=== PATIENT | male | born 1940 | race Caucasian/White ===

== ENCOUNTER → 2017-04-29 | Outpatient (CLI) | payer MEDICARE ==
[2015-09-29 15:06] VITALS: BP 121/62
[~2017-04-29] MED LIST: ASPI-482 PO; LOSA50TA6 PO; LOVA20TA2 PO
--- NOTE | 2017-04-29 09:57 | CARD ---
APPROVED REPORT EXAM: Two-dimensional and M-mode echocardiogram with Doppler and color Doppler. Other Information Quality : GoodHR: 52bpm Rhythm : Bradycardia INDICATION Aortic insufficiency RISK FACTORS Hypertension Hyperlipidemia Family History Previous smoker 2D DIMENSIONS RVDd3.3 (2.9-3.5cm)Left Atrium(2D)3.4 (1.6-4.0cm) IVSd0.9 (0.7-1.1cm)Aortic Root(2D)2.8 (2.0-3.7cm) LVDd4.7 (3.9-5.9cm)LVOT Diameter2.3 (1.8-2.4cm) PWd0.9 (0.7-1.1cm)LVDs3.1 (2.5-4.0cm) FS (%) 34.7 %SV65.9 ml LVEF(%)63.8 (>50%) Aortic Valve AoV Peak Diaz.147.9cm/sAoV VTI31.3cm AO Peak GR.8.8mmHgLVOT Peak Diaz.108.6cm/s AO Mean GR.4mmHgAVA (VMAX)3.14cm2 AI P 1/2 Dkhn677pr Mitral Valve MV E Vdekzrvl50.6cm/sMV E Peak Gr.2mmHg MV DECEL [id number] A Fmxiovwf88.2cm/s MV E Mean Gr.1mmHgE/A Ratio0.8 MV A Prihdxyd396bh Pulmonary Valve PV Peak Uprfixst461.9cm/s Pulmonary Vein S1 Klzuvypg94.7cm/sD2 Dclrguzp81.6cm/s PVa vhorvyzj06mmrb LEFT VENTRICLE The left ventricle is normal size. There is normal left ventricular wall thickness. The left ventricu lar systolic function is normal and the ejection fraction is within normal range. The Ejection Fracti on is 60-65%. There is normal LV segmental wall motion. Transmitral Doppler flow pattern is Grade I-a bnormal relaxation pattern. RIGHT VENTRICLE The right ventricle is normal size. There is normal right ventricular wall thickness. The right ventr icular systolic function is normal. ATRIA The left atrium size is normal. The right atrium size is normal. The interatrial septum is intact wit h no evidence for an atrial septal defect or patent foramen ovale as noted on 2-D or Doppler imaging. AORTIC VALVE The aortic valve is mildly sclerotic. The aortic valve is trileaflet. Doppler and Color Flow revealed mild aortic regurgitation. There is no significant aortic valvular stenosis. MITRAL VALVE Mitral annular calcification is mild. The mitral valve leaflets are thickened. There is no evidence o f mitral valve prolapse. There is no mitral valve stenosis. Doppler and Color Flow revealed trace janey ral regurgitation. TRICUSPID VALVE Doppler and Color Flow revealed no tricuspid valve regurgitation, unable to determine pulmonary arter y pressure at exam time. PULMONIC VALVE The pulmonic valve is not well visualized but appears to open adequately. Doppler and Color Flow reve aled mild pulmonic valvular regurgitation. There is no pulmonic valvular stenosis by spectral Doppler . GREAT VESSELS The aortic root is normal in size. The ascending aorta is normal in size. The IVC is normal in size a nd collapses >50% with inspiration. PERICARDIAL EFFUSION There is no evidence of significant pericardial effusion. Critical Notification Critical Value: No <Conclusion> The left ventricular systolic function is normal and the ejection fraction is within normal range. Th e Ejection Fraction is 60-65%. There is normal LV segmental wall motion. Doppler and Color Flow revealed mild aortic regurgitation.
== END | disposition home or self-care (01) ==
LOC: ECHO 08:56
PROVIDERS: ATTEND Internal Medicine Cardiovascular Disease
DX: I35.1 Nonrheumatic aortic (valve) insufficiency (principal)
CPT/HCPCS: 93306

== ENCOUNTER → 2018-06-02 | Outpatient (CLI) | payer MEDICARE ==
[2015-09-29 15:06] VITALS: BP 121/62
[~2018-06-02] MED LIST changes: -LOSA50TA6 PO; +LOSA50TA7 PO
--- NOTE | 2018-06-02 10:24 | CARD ---
MR#: [id number] Date of Study: 06/02/2018 Ordering Physician: GABRIELLE QUINTANA, Referring Physician: GABRIELLE QUINTANA Tech: Vianey Palma RDCS APPROVED REPORT EXAM: Two-dimensional and M-mode echocardiogram with Doppler and color Doppler. Other Information Quality : Good INDICATION Aortic Insufficiency 2D DIMENSIONS Left Atrium(2D)2.4 (1.6-4.0cm)IVSd0.8 (0.7-1.1cm) Aortic Root(2D)2.3 (2.0-3.7cm)LVDd5.2 (3.9-5.9cm) PWd0.9 (0.7-1.1cm)LVDs2.8 (2.5-4.0cm) FS (%) 30.0 %SV99.8 ml LVEF(%)60.0 (>50%) Aortic Valve AoV Peak Diaz.129.6cm/sAoV VTI24.8cm AO Peak GR.6.7mmHgLVOT Peak Diaz.114.6cm/s LVOT VTI 24.18cmAO Mean GR.3mmHg AI P 1/2 Ryrm491os Mitral Valve MV E Scxzdjrv20.6cm/sMV DECEL ZNXY792pz MV A Wcnqdwnd16.1cm/sMV GQQ20id E/A Ratio0.7MVA (PHT)2.71cm2 TDI E/Lateral E'7.7E/Medial E'7.5 Pulmonary Vein S1 Qwfzgqus68.6cm/sD2 Ckgjvdtb55.7cm/s LEFT VENTRICLE The left ventricle is normal size. There is normal left ventricular wall thickness. The left ventricu lar systolic function is normal. The Ejection Fraction is 60-65%. There is normal LV segmental wall m otion. Transmitral Doppler flow pattern is Grade I-abnormal relaxation pattern. RIGHT VENTRICLE The right ventricle is normal size. The right ventricular systolic function is normal. ATRIA The left atrium size is normal. The right atrium size is normal. The interatrial septum is intact wit h no evidence for an atrial septal defect or patent foramen ovale as noted on 2-D or Doppler imaging. AORTIC VALVE The aortic valve is calcified but opens well. Doppler and Color Flow revealed mild to moderate aortic regurgitation. There is no significant aortic valvular stenosis. MITRAL VALVE The mitral valve is calcified but opens well. There is no evidence of mitral valve prolapse. There is no mitral valve stenosis. Doppler and Color-flow revealed mild mitral regurgitation. TRICUSPID VALVE The tricuspid valve is normal in structure and function. Doppler and Color Flow revealed no tricuspid valve regurgitation noted. There is no tricuspid valve stenosis. PULMONIC VALVE The pulmonic valve is not well visualized. Doppler and Color Flow revealed no pulmonic valvular regur gitation. There is no pulmonic valvular stenosis. GREAT VESSELS The aortic root is normal in size. The ascending aorta is not well seen. The IVC is normal in size an d collapses >50% with inspiration. PERICARDIAL EFFUSION There is no evidence of significant pericardial effusion. Critical Notification Critical Value: No <Conclusion> The left ventricular systolic function is normal. The Ejection Fraction is 60-65%. There is normal LV segmental wall motion. Transmitral Doppler flow pattern is Grade I-abnormal relaxation pattern. Mild to moderate aortic regurgitation. Mild mitral regurgitation. There is no evidence of significant pericardial effusion. Signed by : Gabrielle Quintana, Electronically Approved : 06/02/2018 10:24:10
== END | disposition home or self-care (01) ==
LOC: ECHO 09:03
PROVIDERS: ATTEND Internal Medicine Cardiovascular Disease
DX: I08.0 Rheumatic disorders of both mitral and aortic valves (principal)
CPT/HCPCS: 93306

== ENCOUNTER → 2018-07-11 | Outpatient (CLI) | payer MEDICARE ==
[2015-09-29 15:06] VITALS: BP 121/62
--- NOTE | 2018-07-11 14:26 | KCIC ---
MR of the left shoulder Indication: Left shoulder pain, pain for one year, decreased range of motion.. Comparison: None are available. Technique: Standard multiplanar sequences are obtained. Findings: Artifact: No significant image degradation. Acromioclavicular joint: Mildly degenerative. Rotator cuff: * Supraspinatus-infraspinatus tendon: Tendinosis. There is a small undersurface tear which indicates with an intraosseous cyst at the anterior greater tuberosity. No full-thickness tear or retracted tear. * Subscapularis tendon: Tendinosis, mild partial interstitial tearing. * Muscle bulk: Very mild volume loss. * Subacromial subdeltoid bursa: No significant effusion. Fluid: No significant glenohumeral effusion. Glenohumeral cartilage: Severe chondromalacia. Mild marginal osteophytes. Labrum: Signal within the superior labrum compatible with a small tear, also extends into the posterior labrum. Biceps tendon: Intact Bones: No lesion or acute fracture. Soft tissue: No acute findings.. Impression: 1. Rotator cuff tendinosis. Small subcentimeter undersurface tear of the anterior supraspinatus tendon. Mild partial subscapularis tendon tear. 2. Primary osteoarthritis. 3. Posterosuperior labral degenerative tear. Electronically signed by: Wayne Guzman MD (07/11/2018 2:22 PM) [facility]
== END | disposition home or self-care (01) ==
LOC: KCIC MRI 12:12
PROVIDERS: ATTEND Family Medicine
DX: M19.012 Primary osteoarthritis, left shoulder (principal); M94.212 Chondromalacia, left shoulder; M75.102 Unspecified rotator cuff tear or rupture of left shoulder, not specified as traumatic; M25.712 Osteophyte, left shoulder
CPT/HCPCS: 73221

== ENCOUNTER → 2019-06-11 | Outpatient (CLI) | payer MEDICARE ==
[2015-09-29 15:06] VITALS: BP 121/62
[~2019-06-11] MED LIST changes: +LOSA-73 PO; -LOSA50TA7 PO
--- NOTE | 2019-06-11 16:50 | CARD ---
MR#: [id number] Date of Study: 06/11/2019 Ordering Physician: GABRIELLE QUINTANA, Referring Physician: Chapo SIMMONS: Lupe Ladd APPROVED REPORT EXAM: Two-dimensional and M-mode echocardiogram with Doppler and color Doppler. Other Information Quality : AverageHR: 57bpm INDICATION Aortic Valve Insuffiency 2D DIMENSIONS RVDd3.3 (2.9-3.5cm)Left Atrium(2D)3.1 (1.6-4.0cm) IVSd0.8 (0.7-1.1cm)Aortic Root(2D)2.9 (2.0-3.7cm) LVDd4.8 (3.9-5.9cm)LVOT Diameter2.2 (1.8-2.4cm) PWd0.6 (0.7-1.1cm)LVDs3.0 (2.5-4.0cm) FS (%) 37.2 %SV73.1 ml Aortic Valve AoV Peak Diaz.145.9cm/sAoV VTI24.8cm AO Peak GR.8.5mmHgLVOT Peak Diaz.124.7cm/s LVOT VTI 22.75cmAO Mean GR.4mmHg HOME (VMAX)2.90dd5VZN (VTI)3.62cm2 AI P 1/2 Zknk998vv Mitral Valve MV E Icvsxugp13.2cm/sMV DECEL VAHF726tc MV A Xdcexvth88.6cm/sMV TUJ608bf E/A Ratio0.9MVA (PHT)1.98cm2 TDI E/Lateral E'5.9E/Medial E'6.8 Pulmonary Valve PV Peak Frbjvdfe50.6cm/sPV Peak Grad.3mmHg Tricuspid Valve TR P. Ihpzanhu256na/sRAP GGLICKVB16jyYb TR Peak Gr.23mmHg Pulmonary Vein S1 Plqgvsqx67.6cm/sD2 Htnwhzfc00.2cm/s PVa vukzgozb275mwmw LEFT VENTRICLE The left ventricle is normal size. There is normal left ventricular wall thickness. The left ventricu lar systolic function is normal and the ejection fraction is within normal range. The Ejection Fracti on is 55-60%. There is normal LV segmental wall motion. Transmitral Doppler flow pattern is Grade I-a bnormal relaxation pattern. RIGHT VENTRICLE The right ventricle is normal size. There is normal right ventricular wall thickness. The right ventr icular systolic function is normal. ATRIA The left atrium size is normal. The right atrium size is normal. The interatrial septum is intact wit h no evidence for an atrial septal defect or patent foramen ovale as noted on 2-D or Doppler imaging. AORTIC VALVE The aortic valve is calcified but opens well. Doppler and Color Flow revealed mild aortic regurgitati on. There is no significant aortic valvular stenosis. MITRAL VALVE The mitral valve is thickened but opens well. There is no evidence of mitral valve prolapse. There is no mitral valve stenosis. Doppler and Color-flow revealed mild mitral regurgitation. TRICUSPID VALVE The tricuspid valve is normal in structure and function. Doppler and Color Flow revealed trace tricus pid regurgitation with an estimated PAP of 26 mmHg. There is no tricuspid valve stenosis. PULMONIC VALVE The pulmonic valve is not well visualized. Doppler and Color Flow revealed trace pulmonic valvular re gurgitation. GREAT VESSELS The aortic root is normal in size. The IVC is normal in size and collapses >50% with inspiration. PERICARDIAL EFFUSION There is no evidence of significant pericardial effusion. Critical Notification Critical Value: No <Conclusion> The left ventricle is normal size. The left ventricular systolic function is normal and the ejection fraction is within normal range. The Ejection Fraction is 55-60%. There is normal left ventricular wall thickness. There is no significant aortic valvular stenosis. Doppler and Color Flow revealed mild aortic regurgitation. Doppler and Color-flow revealed mild mitral regurgitation. Doppler and Color Flow revealed trace tricuspid regurgitation with an estimated PAP of 26 mmHg. Signed by : Angus Corcoran MD Electronically Approved : 06/11/2019 16:49:51
== END | disposition home or self-care (01) ==
LOC: ECHO 09:57
PROVIDERS: ATTEND Internal Medicine Cardiovascular Disease
DX: I08.0 Rheumatic disorders of both mitral and aortic valves (principal)
CPT/HCPCS: 93306

== ENCOUNTER → 2019-09-06 | Outpatient (CLI) | payer MEDICARE ==
[2015-09-29 15:06] VITALS: BP 121/62
--- NOTE | 2019-09-06 16:27 | KCIC ---
EXAM: Thyroid sonogram. HISTORY: Neck pain and swelling. TECHNIQUE: Sonographic imaging of the thyroid was performed. COMPARISON: None. FINDINGS: The right thyroid lobe measures 4.3 x 1.8 x 1.8 cm. The left thyroid lobe measures 4.7 x 1.6 x 1.6 cm. The isthmus measures 2 mm. There is a 4 mm colloid cyst within the inferior right thyroid lobe. No solid thyroid lesion is seen IMPRESSION: 1. Small right colloid cyst. 2. Normal thyroid size. No suspicious thyroid lesion is seen. Electronically signed by: Jacquelin Wilkinson MD (09/06/2019 4:24 PM) [place] [id number]
== END | disposition home or self-care (01) ==
LOC: KCIC US 12:10
PROVIDERS: ATTEND Family Medicine
DX: E04.1 Nontoxic single thyroid nodule (principal)
CPT/HCPCS: 76536

== ENCOUNTER → 2020-06-11 | Outpatient (CLI) | payer MEDICARE ==
[2015-09-29 15:06] VITALS: BP 121/62
--- NOTE | 2020-06-11 17:46 | CARD ---
MR#: [id number] Date of Study: 06/11/2020 Ordering Physician: GABRIELLE QUINTANA, Referring Physician: GABRIELLE QUINTANA, Tech: Celia Zafar APPROVED REPORT EXAM: Two-dimensional and M-mode echocardiogram with Doppler and color Doppler. Other Information Quality : FairHR: 66bpm Technically limited study due to body habitus. INDICATION Aortic Valve Disease RISK FACTORS Hypertension Hyperlipidemia 2D DIMENSIONS RVDd2.7 (2.9-3.5cm)IVSd0.9 (0.7-1.1cm) Aortic Root(2D)3.2 (2.0-3.7cm)LVDd4.2 (3.9-5.9cm) LVOT Diameter2.0 (1.8-2.4cm)PWd0.9 (0.7-1.1cm) LVDs3.2 (2.5-4.0cm)LVEF(%)50.0 (>50%) Aortic Valve AoV Peak Diaz.134.4cm/sAoV VTI28.7cm AO Peak GR.7.2mmHgLVOT Peak Diaz.121.6cm/s LVOT VTI 24.50cmAO Mean GR.4mmHg Mitral Valve MV E Zrlnwupn040.9cm/sMV A Uaaazphz00.3cm/s E/A Ratio1.3 TDI E/Lateral E'8.6E/Medial E'12.9 Pulmonary Valve PV Peak Odrsdjsm958.9cm/sPV Peak Grad.4mmHg Tricuspid Valve TR P. Bnxzlabz157st/sRAP KFIVOYVW3qcIp TR Peak Gr.41unXkUHMM77mnBt Pulmonary Vein S1 Cdgnorsb45.4cm/sD2 Tgkxhgqq76.5cm/s PVa qnumhcab439uphv LEFT VENTRICLE The left ventricle is normal size. There is normal left ventricular wall thickness. The left ventricu lar systolic function is normal and the ejection fraction is within normal range. The Ejection Fracti on is 50-55%. There is normal LV segmental wall motion. Transmitral Doppler flow pattern is Grade II- pseudonormal filling dynamics. RIGHT VENTRICLE The right ventricle is normal size. There is normal right ventricular wall thickness. The right ventr icular systolic function is normal. ATRIA The left atrium size is normal. The right atrium size is normal. The interatrial septum is intact wit h no evidence for an atrial septal defect or patent foramen ovale as noted on 2-D or Doppler imaging. AORTIC VALVE Grossly normal, not well visualized. Probably trileaflet. Doppler and Color Flow revealed mild aortic regurgitation. There is no significant aortic valvular stenosis. Calculated aortic valve area is 2.5 5 cm2 with maximum pressure gradient of 8 mmHg and mean pressure gradient of 5 mmHg. MITRAL VALVE The mitral valve is normal in structure and function. There is no evidence of mitral valve prolapse. There is no mitral valve stenosis. Doppler and Color-flow revealed trace mitral regurgitation. TRICUSPID VALVE Not well visualized. Doppler and Color Flow revealed trace tricuspid regurgitation with an estimated PAP of 27 mmHg. There is no tricuspid valve stenosis. PULMONIC VALVE The pulmonic valve is not well visualized. Doppler and Color Flow revealed no pulmonic valvular regur gitation. There is no pulmonic valvular stenosis. GREAT VESSELS The aortic root is normal in size. The IVC is normal in size and collapses >50% with inspiration. PERICARDIAL EFFUSION There is no evidence of significant pericardial effusion. Critical Notification Critical Value: No <Conclusion> The left ventricular systolic function is normal and the ejection fraction is within normal range. Th e Ejection Fraction is 50-55%. There is normal LV segmental wall motion. Doppler and Color Flow revealed mild aortic regurgitation. Technically difficult study Signed by : vEer Bella, Electronically Approved : 06/11/2020 17:45:41
== END ==
LOC: ECHO 09:44
PROVIDERS: ATTEND Internal Medicine Cardiovascular Disease
DX: I35.1 Nonrheumatic aortic (valve) insufficiency (principal)
CPT/HCPCS: 93306

== ENCOUNTER → 2021-06-10 | Outpatient (CLI) | payer MEDICARE ==
[2015-09-29 15:06] VITALS: BP 121/62
--- NOTE | 2021-06-10 17:57 | CARD ---
MR#: [id number] Date of Study: 06/10/2021 Ordering Physician: GABRIELLE QUINTANA, Referring Physician: GABRIELLE QUINTANA Tech: Celia Zafar CS APPROVED REPORT INDICATION Aortic Valve Disease Aortic Valve Insuffiency RISK FACTORS Hypertension Hyperlipidemia Reason : Patient complained of pain PROCEDURE The patient underwent an Exercise Stress Test using the [place] Protocol. Blood pressure, heart rate, a nd EKG were monitored. An Echocardiogram was performed by process development technician in four stages in quad fashion. At peak stress four se lected images were obtained and placed side by side with resting images for comparison. STRESS ECHO FINDINGS The resting Echocardiogram showed normal left ventricular systolic contractility with an estimated Ej ection Fraction of about 55 %. The Resting Echocardiogram showed normal augmentation of myocardial wall segments using a 16 segment model. The Stress Echocardiogram showed normal augmentation of myocardial wall segments using a 16 segment m emerald. The Stress Echocardiogram left ventricular systolic contractility has an estimated Ejection Fraction of about 70%. Test Type: Exercise Stress Nurse/Tech: Cheryl Cobb RN Test Indications: aortic insufficiency, dyspnea on exertion Cardiac History and Allergies: HTN, High cholesterol Medications: see EMR Medical History: see EMR Resting ECG: SR Resting Heart Rate: 68 bpm Resting Blood Pressure: 152/60mmHg Pretest Chest Pain: None Nurse/Tech Notes Lungs CTA, murmur noted Consent: The procedure was explained to the patient in lay terms. Informed consent was witnessed. Ramiro eout was entered into thePlatform. History and Stress Test performed by Cheryl Cobb RN Stress Symptoms No chest pain or symptoms. POST EXERCISE Reason for Termination: Reached target heart rate Target HR: Yes Max HR: 143 bpm 101% of Maximum Predicted HR: 142 bpm Exercise duration: 6:38 min:sec, Stage Max Blood Pressure: 177/59mmHg Blood Pressure response to exercise: Normal blood pressure response during stress. Heart Rate response to exercise: normal response Chest Pain: No. Arrhythmia: Yes. PAC, PVC ST Change: No. INTERPRETATION Stress EKG Conclusion: The resting EKG shows a sinus rhythm with mild nonspecific ST-T wave changes. The stress EKG showed mild upsloping ST segment depression in the inferior and lateral leads. Mild ST changes with exertion as noted above that are suggestive but not diagnostic of mild ischemia. Preliminary Notification Critical Value: No <Conclusion> 1. Good exercise tolerance. 2. No reported chest pain. 3. Mild upsloping ST depression with exertion as outlined above. 4. Normal LV systolic function at rest. 5. Normal LV response to exertion with no regional wall motion abnormalities. 6. Moderately low risk treadmill stress echo with good exercise tolerance, no chest pain, borderline EKG changes and normal LV function at rest and with exertion. Signed by : Angus Corcoran MD Electronically Approved : 06/10/2021 17:56:48
== END ==
LOC: ECHO 12:52
PROVIDERS: ATTEND Internal Medicine Cardiovascular Disease
DX: R06.09 Other forms of dyspnea (principal); I35.1 Nonrheumatic aortic (valve) insufficiency
CPT/HCPCS: 93017; 93350